=== PATIENT | male | born 1980 | race Two or more races ===

== ENCOUNTER 2018-10-15 15:19 | Inpatient (IN) | payer OTHER ==
[~2018-10-15] VITALS: Ht 160 cm; Wt 69.9 kg
[2018-10-15] MEDS ORDERED: IBUPROFEN 600 MG TABLET PO ONE ×2 (16:00→16:16)
[2018-10-15] MEDS ORDERED: LIDOCAINE 1% INJ 50 ML MDV IJ ONE ×2 (16:00→16:15)
[2018-10-15] MEDS ORDERED: TDAP [DIPH/PERTUSSIS/TET] 0.5 ML VIAL IM ONE ×2 (16:00→16:16)
--- NOTE | 2018-10-15 16:54 | NUR ---
CALLED [facility] [place] [phone] LEFT MSG TO CALL US BACK.
[2018-10-15] MEDS ORDERED: CEFAZOLIN 1 GM in IV D5W 50 ML IV ONE (17:00)
[2018-10-15 17:13] LABS: BASOPHILS # (AUTO) 0.1 /CMM (0.0-0.2); BASOPHILS % (AUTO) 0.9 % (0.0-2.0); EOSINOPHILS % (AUTO) 1.4 % (0.0-6.0); HEMATOCRIT 43 % (39-51); HEMOGLOBIN 14.3 g/dL (13.5-17.5); LYMPHOCYTES # (AUTO) 2.2 /CMM (0.8-4.8); LYMPHOCYTES % (AUTO) 30.7 % (20.0-44.0); MEAN CORPUSCULAR HGB CONC 34 g/dl (31.0-36.0); MEAN CORPUSCULAR VOLUME 90 fL (80-96); MONOCYTES # (AUTO) 0.4 /CMM (0.1-1.30); MONOCYTES % (AUTO) 5.2 % (2.0-12.0); NEUTROPHILS # (AUTO) 4.5 /CMM (1.8-8.9); NEUTROPHILS % (AUTO) 61.8 % (43.0-81.0); PLATELET COUNT (AUTO) 224 /CMM (150-450); RED BLOOD CELL COUNT(AUTO) 4.75 MIL/uL (4.5-6.0); WHITE BLOOD COUNT (AUTO) 7.2 K/uL (4.3-11.0)
[2018-10-15 17:23] LABS: CALCIUM, SERUM 9.6 mg/dL (8.5-10.1); CREATININE 1.3 mg/dL (0.6-1.3); POTASSIUM 3.7 mmol/L (3.5-5.1)
--- NOTE | 2018-10-15 18:55 | NUR ---
CALLED DR. EMANUEL [phone] TO CALL US BACK.
[2018-10-15] MEDS ORDERED: HYDROCODONE/APAP 5/325MG 1 EACH TABLET PO PRN (19:30)
[2018-10-15] MEDS ORDERED: ONDANSETRON HCL/PF 4 MG/2 ML VIAL IVP PRN (19:30)
[2018-10-15] MEDS ORDERED: ZOLPIDEM TARTRATE 5 MG TABLET PO PRN (19:30)
[2018-10-15] MEDS ORDERED: ACETAMINOPHEN 325 MG TABLET PO PRN (19:30)
--- NOTE | 2018-10-15 19:30 | NUR ---
RECEIVED REPORT FROM LUIS ANDERSON FOR NOEL. PT RESTING COMFORTABLY IN BED. NO ACUTE DISTRESS NOTED AT THIS TIME. WILL CONTINUE TO MONITOR
[2018-10-15] MEDS ORDERED: CEFAZOLIN 1 GM in IV D5W 50 ML IV SCH (21:00)
--- NOTE | 2018-10-15 21:28 | NUR ---
GAVE REPORT TO JENNIFER ANDERSON FOR NOEL
[2018-10-15 22:00] VITALS: BP 146/81
[2018-10-15 22:20] VITALS: BP 146/81
--- NOTE | 2018-10-15 22:20 | NUR ---
MS RN NOTE RECEIVED PT IN STABLE CONDITION VIA WHEELCHAIR FROM ER. PT IS A&O X4, ICELANDIC SPEAKING, UNDERSTANDS IRISH. AND SISTER ARE AT BEDSIDE. NO SIGNS OF SOB OR DISTRESS. PT C/O PAIN 10/10 ON L HAND. WILL GIVE PAIN MEDICATION ORDERED BY MD. BODY CHECK DONE WITH PHOTOS IN CHART. BELONGINGS SIGNED AND ACCOUNTED FOR. IV ON R AC #18 PATENT AND INTACT. ALL CURRENT NEEDS MET. SAFETY PRECAUTIONS IN PLACE: BED LOW, LOCKED, UPPER RAILS UP, AND CALL LIGHT WITHIN REACH. WILL CONT TO MONITOR.
--- NOTE | 2018-10-15 22:21 | NUR ---
PT TRANSFERRED TO MS BED VIA WHEELCHAIR WITH EMT
[2018-10-15] MEDS: HYDROMORPHONE INJ 2 MG/ML DISP.SYRIN IV PRN (22:51)
--- NOTE | 2018-10-15 22:51 | NUR ---
MS RN NOTE PRN DILAUDID 1 MG GIVEN FOR PAIN 9/10 LOCATED ON THE LEFT HAND LACERATION. WILL CONT TO MONITOR.
--- NOTE | 2018-10-15 23:15 | NUR ---
MS RN NOTE PER RUDOLPH SHAH TO CHANGE L HAND DRESSING. WILL CONT TO MONITOR SITE.
--- NOTE | 2018-10-16 01:07 | NUR ---
MS RN NOTE PER INGA (NURSING INSTRUCTIONAL MANAGER) ORDERED ANCEF IS NOT AVAILABLE. NOTIFIED NIKKY FINLEY. PER NIKKY, HE WILL TRY TO ORDER A NEW ATB. WILL WAIT FOR NEW ORDER.
[2018-10-16] MEDS ORDERED: PIPERACILLIN /TAZOBACTAM 3.375 G VIAL IV ONE (02:02)
[2018-10-16] MEDS ORDERED: PIPERACILLIN /TAZOBACTAM 3.375 G in IV D5W 50 ML IV SCH (05:00)
--- NOTE | 2018-10-16 06:05 | NUR ---
MS RN NOTE PT IN STABLE CONDITION A&O X4, IRISH SPEAKING, UNDERSTANDS HONDURAN. PT CURRENTLY RESTING IN BED. NO SIGNS OF SOB OR DISTRESS. NO C/O PAIN. PAIN MANAGED ORDERED BY MD. Smith HAND LAC WITH DRESSING NO SIGNS OF INFECTION. IV ON R AC #18 PATENT AND INTACT. ALL CURRENT NEEDS MET. SAFETY PRECAUTIONS IN PLACE: BED LOW, LOCKED, UPPER RAILS UP, AND CALL LIGHT WITHIN REACH. WILL CONT TO MONITOR AND WILL ENDORSE TO NEXT SHIFT FOR NOEL.
[2018-10-16 08:00] VITALS: BP 112/71
--- NOTE | 2018-10-16 08:00 | NUR ---
MS RN AM NOTES PT IN STABLE CONDITION A&O X4, SWEDISH SPEAKING, UNDERSTANDS SAMI. PT CURRENTLY RESTING IN BED. NO SIGNS OF SOB OR DISTRESS.C/O MILD PAIN TO LT HAND LACERATION BUT REFUSED TO TAKE ANY PAIN MEDS. LT HAND LACERATION WITH DRESSING NO SIGNS OF INFECTION. IV ON R AC #18 PATENT AND INTACT. SAFETY PRECAUTIONS IN PLACE: BED LOW, LOCKED, UPPER RAILS UP, AND CALL LIGHT WITHIN REACH. WILL CONT TO MONITOR
[2018-10-16] MEDS: HYDROMORPHONE INJ 2 MG/ML DISP.SYRIN IV PRN (12:41)
--- NOTE | 2018-10-16 12:48 | NUR ---
PT WAS SEEN BY DR EMANUEL AND DID THE DEBRIDEMENT OF LEFT SMALL FINGER AT BEDSIDE -WITH CONSENT SIGNED BY PT.DILAUDID 1 MG IV GIVEN POST DEBRIDEMENT PROCEDURE.DR EMANUEL STATED THAT THE PT CAN BE DISCHARGED HOME AND FOLLOW UP WITH HIM(WORKER'S COMP).
[2018-10-16] MEDS ORDERED: PIPERACILLIN /TAZOBACTAM 3.375 G in IV D5W 100 ML IV SCH (13:00)
[2018-10-16] MEDS ORDERED: SULF1TAB48 PO (13:06)
[2018-10-16] MEDS ORDERED: HYDR-4384 PO (13:18)
[2018-10-16 15:50] VITALS: BP 111/73
--- NOTE | 2018-10-16 18:10 | NUR ---
PT STARTED VOMITING MODERATE LIQUID.PT TEACHING DONE REGARDING THE PAIN MED SIDE EFFECTS.NOTIFIED JAKE ZEPEDA WITH ORDERS FOR REGLAN 10 MG PO X1. WILL MONITOR.
[2018-10-16] MEDS ORDERED: METOCLOPRAMIDE HCL 10 MG TABLET PO ONE (18:30)
[2018-10-16] MEDS ORDERED: ONDANSETRON HCL/PF 4 MG/2 ML VIAL IVP PRN (18:30)
--- NOTE | 2018-10-16 19:43 | NUR ---
MS/RN NOTES RECEIVED PT. LYING DOWN IN BED. PT. IS AWAKE, ALERT AND ORIENTED X4. BREATHING EVEN AND UNLABORED ON ROOM AIR. NO SOB, RESPIRATORY DISTRESS OR COMPLAINTS OF PAIN NOTED AT THIS TIME. NO NAUSEA/VOMITING NOTED AT THIS TIME. PT. WITH RIGHT AC 18 GAUGE IV SALINE LOCK PRESENT, PATENT AND INTACT. PER DAYSHIFT RN PT. IS BEING DISCHARGED TONIGHT. PT. EXITCARE, DISCHARGE INSTRUCTIONS AND BELONGINGS LIST COMPLETED SIGNED AND PLACED IN PT. CHART. COPY PROVIDED TO PT. REMOVED PT. IV ACCESS, NO BLEEDING OR S/S OF INFECTION NOTED. REMOVED PT. ID BAND. PT. LEFT THE FLOOR IN STABLE CONDITION VIA WHEELCHAIR ESCORTED BY FLYER BUILDER AND FAMILY MEMBERS AT 1943.
== END 2018-10-16 19:45 | disposition home or self-care (01) | DRG 983 ==
LOC: ER 15:21 → MEDSG2 21:39
PROVIDERS: ADMIT Nurse Practitioner Acute Care; ATTEND Registered Nurse
PROC: 0KBD0ZZ Excision of Left Hand Muscle, Open Approach (ICD-10-PCS; principal; 2018-10-16)
DX: S61.217A Laceration without foreign body of left little finger without damage to nail, initial encounter (principal); W31.89XA Contact with other specified machinery, initial encounter; Y92.89 Other specified places as the place of occurrence of the external cause; S64.02XA Injury of ulnar nerve at wrist and hand level of left arm, initial encounter
CPT/HCPCS: 36415; 73130-TC; 80048-TC; 85025-TC; 85610-TC; 87081-TC; 90715; A6402; A6403; A6407; G0378; J0690; J1170; J2405; J2543; J3490; J7050; J7060; J8597